=== PATIENT | male | born 1980 ===

== ENCOUNTER 2025-09-07 14:24 | Outpatient (CLI) | payer OTHER, SELFPAY | END 2025-09-07 14:25 | disposition home or self-care (01) | LOC: AMB 10-06 02:09 | PROVIDERS: Visit Provider Family Medicine | DX: S29.9XXA Unspecified injury of thorax, initial encounter (principal); V43.54XA Car driver injured in collision with van in traffic accident, initial encounter; Y92.410 Unspecified street and highway as the place of occurrence of the external cause | CPT/HCPCS: A0998 ==